=== PATIENT | male | born 1990 | race Caucasian/White ===

== ENCOUNTER 2024-04-05 10:21 | Emergency (ER) | payer MEDICAID ==
[~2024-04-05] VITALS: Ht 177.8 cm; Wt 85.0 kg
[2024-04-05 10:47] VITALS: BP 116/77; PULSE 82; RESP 16; O2SAT 97
[2024-04-05] MEDS ORDERED: TRIA15CR61 TP (12:09)
[2024-04-05] MEDS ORDERED: PRED20TA PO (12:09)
== END 2024-04-05 12:45 | disposition home or self-care (01) ==
LOC: ER 10:21
DX: L23.7 Allergic contact dermatitis due to plants, except food (principal)
CPT/HCPCS: 99283